=== PATIENT | male | born 1980 | race Caucasian/White ===

== ENCOUNTER 2022-10-17 13:12 | Emergency (ER) | payer OTHER ==
[~2022-10-17] VITALS: Ht 172.7 cm; Wt 74.2 kg
[2022-10-17] MEDS ORDERED: NEOM0.1O7 OP (16:34)
[2022-10-17 16:55] VITALS: BP 143/90; PULSE 76; RESP 18; TEMP 98.7; O2SAT 98
== END 2022-10-17 16:57 | disposition home or self-care (01) ==
LOC: ER 13:12
DX: T15.11XA Foreign body in conjunctival sac, right eye, initial encounter (principal); Y92.89 Other specified places as the place of occurrence of the external cause

== ENCOUNTER 2024-07-29 10:37 | Emergency (ER) | payer OTHER ==
[~2024-07-29] VITALS: Ht 172.7 cm; Wt 76.0 kg
[~2024-07-29 10:37] MED LIST: NEOM0.1O7 OP
[2024-07-29 10:56] VITALS: BP 138/86; PULSE 71; RESP 16; TEMP 97.7; O2SAT 97
--- NOTE | 2024-07-29 11:20 | ED.PDOC ---
Eye-HPI HPI Comments 43-year-old male presents with a chief complaint of right eye pain onset last night. Patient states that he was grinding his swamp cooler last night and believes a piece of metal got into his eye. Patient is able to see from his eye and denies any vision changes. Patient states that the pain he is experiencing is to his upper eyelid. Denies vision changes Denies eye discharge Denies hearing changes, nausea, vomiting Denies eye pain with movement, eye pain in general, difficulty keeping eye open, sensitivity to light Chief Complaint: Eye Problem Time Seen by MD: 11:06 Primary Care Provider: NONE Reviewed Notes: Nurses Notes, Medications, Allergies Allergies: Coded Allergies: NO KNOWN ALLERGIES (Unverified , 10/17/22) Home Meds Active Scripts Erythromycin (Erythromycin) 5 Mg/Gm Oin, 1 APPLIC OP TID for 7 Days, #3.5 GRAMS 0 Refills Prov:DEYSI SOLORIO HOSPICE BEREAVEMENT COORDINATOR 07/29/24 Oovklpac-Ecofmz-Hwipttbv (Maxitrol) 0.1 % Oin, 0.1 % OP TID, #3 OIN Prov:KEIKO SHIELSD 10/17/22 Information Source: Patient Mode of Arrival: Ambulatory Timing: Hours Duration: Since onset Prehospital treatment: None Eye Location: Right Lids: Foreign Conjunctiva: Normal Cornea: Normal Pupils: Normal EOM: Normal Fundus: Normal Slit lamp exam: Normal Anterior chamber: Normal Past Medical History PAST MEDICAL HISTORY: Denies Surgical History: Denies all surgeries Family History Family History: Reviewed,noncontributory to illness Social History Smoker: Non-Smoker Alcohol: Denies ETOH Use Drugs: Denies Drug Use Lives In: Home Constitutional: denies: chills, diaphoresis, fatigue, fever, malaise, sweats, weakness, others EENTM: reports: eye pain; denies: blurred vision, double vision, ear bleeding, ear discharge, ear drainage, ear pain, ear ringing, eye redness, hearing loss, mouth pain, mouth swelling, nasal discharge, nose bleeding, nose congestion, nose pain, photophobia, tearing, throat pain, throat swelling, voice changes, others Respiratory: denies: cough, hemoptysis, orthopnea, SOB at rest, shortness of breath, SOB with excertion, stridor, wheezing, others Cardiovascular: denies: chest pain, dizzy spells, diaphoresis, Dyspnea on exertion, edema, irregular heart beat, left arm pain, lightheadedness, palpitations, PND, syncope, others Gastrointestinal: denies: abdomen distended, abdominal pain, blood streaked bowels, constipated, diarrhea, dysphagia, difficulty swallowing, hematemesis, melena, nausea, poor appetite, poor fluid intake, rectal bleeding, rectal pain, vomiting, others Genitourinary: denies: burning, dysuria, flank pain, frequency, hematuria, incontinence, penile discharge, penile sore, pain, testicle pain, testicle swelling, urgency, others Neurological: denies: dizziness, fainting, headache, left sided numbness, left sided weakness, numbness, paresthesia, pre-existing deficit, right sided numbnes s, right sided weakness, seizure, speech problems, tingling, tremors, weakness, others Musculoskeletal: denies: back pain, gout, joint pain, joint swelling, muscle pain, muscle stiffness, neck pain, others Integumetry: denies: bruises, change in color, change in hair/nails, dryness, laceration, lesions, lumps, rash, wounds, others Allergic/Immunocompromised: denies: Difficulty Healing, Frequent Infections, Hives, Itching, others Hematologic/Lymphatic: denies: anemia, blood clots, easy bleeding, easy bruising, swollen glands, others Endocrine: denies: excessive hunger, excessive sweating, excessive thirst, excessive urination, flushing, intolerance to cold, intolerance to heat, unexplained weight gain, unexplained weight loss, others Psychiatric: denies: anxiety, bipolar disorder, depression, hopeless, panic disorder, schizophrenia, sleepless, suicidal, others All Other Systems: Reviewed and Negative Physical Exam General Appearance: No Apparent Distress, Normal HEENT: Normal ENT Inspection, Pharynx Normal, TMs Normal, Other (No orbital swelling, no ocular discharge, no erythema, sclera is milding injected, EOM intact, PERRLA, FB to right upper eyelid with lid aversion, Approximately 1mm black metallic speck ) Neck: Full Range of Motion, Non-Tender, Normal, Normal Inspection Respiratory: Chest Non-Tender, Lungs Clear, No Accessory Muscle Use, No Respiratory Distress, Normal Breath Sounds Cardiovascular: No Edema, No JVD, No Murmur, No Gallop, Normal Peripheral Pulses, Regular Rate/Rhythm Breast Exam: Deferred Gastrointestinal: No Organomegaly, Non Tender, No Pulsatile Mass, Normal Bowel Sounds, Soft Genitalia: Deferred Pelvic: Deferred Rectal: Deferred Extremities: No calf tenderness, Normal capillary refill, Normal inspection, Normal range of motion, Non-tender, No pedal edema Musculoskeletal : Apperance: Normal Neurologic: Alert, architect in training II-XII nml as Tested, No Motor Deficits, Normal Affect, Normal Mood, No Sensory Deficits Cerebellar Function: Normal Reflexes: Normal Skin: Dry, Normal Color, Warm Lymphatic: No Adenopathy Was a procedure done? Was a procedure done?: No EENT DIFF Eye: Viral, Foreign Body-Conjunctiva, Foreign Body-Corneal, Foreign Body-Lid, Other X-Ray, Labs, Meds, VS Vital Signs Date Time Temp Pulse Resp B/P (MAP) Pulse Ox O2 Delivery O2 Flow Rate FiO2 07/29/24 10:56 97.7 71 16 138/86 (103) 97 97.7 07/29/24 10:56 71 16 97 Room Air 07/29/24 10:50 97.7 71 16 138/86 (103) 97 97.7 Current Medications Medications (Trade) Dose Ordered Sig/Abimael Route Start Time Stop Time Status Last Admin Diphtheria/ Tetanus/Acell Pertussis (Boostrix T-Dap) 0.5 ml ONCE ONCE IM 07/29/24 11:30 07/29/24 11:31 DC 07/29/24 11:40 X-Ray, Labs, Meds, VS Comment 43-year-old male presents with a chief complaint of right eye pain onset last night. Patient arrives alert and oriented, ABC's intact, afebrile, vital signs stable, saturating well in room air There does not appear to be an associated infection or injury with this foreign body. Procedure: the foreign body was removed by me easily on the first attempt, without complication, using a Q-Tip Eye was then irrigated with 50 cc NS Tdap updated Patient will be discharged with strict return precautions and follow up with primary MD within 48-72 hours for further evaluation Additional MDM Review of External, Non-ED records: External records reviewed. Discussion with independent historian (EMS, family) history obtained from the patient/parents (if applicable) at bedside Chronic conditions affecting care: None Social determinants of health affecting care: None Consideration of admission (observation or admission): I considered escalation of care to admission for this patient, however given the reassuring workup, the patient is safe for outpatient management. Discussion with the Radiology: No Tests considered but not performed: Prescription medication considered but not given: Time of 1ST Reevaluation: 11:36 Reevaluation 1ST: Improved Patient Education/Counseling: Diagnosis, Treatment, Prognosis Family Education/Counseling: No Family Present SEPSIS Sepsis Screen Date sepsis recognized/suspect: Jul 29, 2024 Time Sepsis recognized/suspect: 1047 Recent Procedure: No On Antibiotic Therapy: No Respiratory Rate >20: No Heart Rate >90: No Temp<36 C (96.8 F) or >38.3 C: No SBP <90 or MAP <65 mmHG: No New Acute Mental Status Change: No Is the patient on CPAP, BIPAP,: No Orders/Vitals/Labs Vital Signs Date Time Temp Pulse Resp B/P (MAP) Pulse Ox O2 Delivery O2 Flow Rate FiO2 07/29/24 10:56 97.7 71 16 138/86 (103) 97 97.7 07/29/24 10:56 71 16 97 Room Air 07/29/24 10:50 97.7 71 16 138/86 (103) 97 97.7 Departure 1 Departure Time of Disposition: 11:24 Impression: Primary Impression: Foreign body, eye Qualified Codes: T15.91XA - Foreign body on external eye, part unspecified, right eye, initial encounter Disposition: HOME / SELF CARE / HOMELESS Condition: Stable e-Prescriptions Erythromycin (Erythromycin) 5 Mg/Gm Oin 1 APPLIC OP TID for 7 Days, #3.5 GRAMS 0 Refills Prov: DEYSI SOLORIO HOSPICE BEREAVEMENT COORDINATOR 07/29/24 Critical Care Note Critical Care Time?: No Stability Stability form required: No Heart Score Heart Score: Heart Score Response (Comments) Value History N/A 0 EKG N/A 0 Age N/A 0 Risk Factors N/A 0 Troponin N/A 0 Total 0 I personally scribed for DEYSI SOLORIO HOSPICE BEREAVEMENT COORDINATOR ([email or web address]) on 07/29/24 at 11:20. Electronically submitted by Schuyler Cordova ([email or web address]). I personally scribed for DEYSI SOLORIO HOSPICE BEREAVEMENT COORDINATOR ([email or web address]) on 07/29/24 at 11:29. Electronically submitted by Schuyler Cordova ([email or web address]). DEYSI SOLORIO NP Jul 29, 2024 11:20
[2024-07-29] MEDS ORDERED: ERY05OO OP (11:25)
[2024-07-29] MEDS: TETANUS-DIPTH-ACEL PERTUSSIS 0.5ML SYR Tdap IM ONE (11:40)
== END 2024-07-29 11:47 | disposition home or self-care (01) ==
LOC: ER 10:37
DX: T15.91XA Foreign body on external eye, part unspecified, right eye, initial encounter (principal); W44.8XXA Other foreign body entering into or through a natural orifice, initial encounter; Y93.89 Activity, other specified; Y92.89 Other specified places as the place of occurrence of the external cause; Y99.8 Other external cause status
CPT/HCPCS: 90471; 90715